=== PATIENT | male | born 1970 | race Caucasian/White ===

== ENCOUNTER → 2016-03-22 | Outpatient (CLI) | payer BC ==
--- NOTE | 2016-03-22 16:02 | NM ---
EXAMINATION TYPE: NM parathyroid w/ SPECT DATE OF EXAM: 03/22/2016 3:37 PM COMPARISON: Correlation ultrasound 03/16/2016 HISTORY: 46-year-old male hypoparathyroidism, unspecified TECHNIQUE: Following administration of 27.2 mCi Tc99m Sestamibi. Anterior projection images of the neck and ches t were obtained 3 minutes and 3 hours post injection. SPECT images of the neck and chest were obtain ed and reconstructed in three axes. FINDINGS: Thyroid tracer washout: Delayed images demonstrate complete to near complete tracer washout from the thyroid. Parathyroid uptake: None. The 3 hour delayed images do not demonstrate any focal abnormal persistent uptake in the region of the parathyroid glands to suggest parathyroid adenoma. Other uptake: While normal uptake is noted in the salivary glands and the visualized myocardium, ther e is excessive bone marrow uptake seen throughout including the calvarium, clavicles, humeri, sternum , and ribs. Initially, physiologic tracer uptake was noted in the thyroid gland. IMPRESSION: 1. No scintigraphic evidence for parathyroid adenoma. 2. There is bone marrow uptake on this parathyroid scan. This finding can be seen in the setting of e xtremely high PTH levels such as with end-stage renal disease.
== END | disposition home or self-care (01) ==
LOC: RADNMMAIN 11:08
PROVIDERS: ATTEND Family Medicine
DX: E20.9 Hypoparathyroidism, unspecified (principal); R94.6 Abnormal results of thyroid function studies
CPT/HCPCS: 78071; A9500

== ENCOUNTER 2016-04-23 12:04 | Day surgery (SDC) | payer BC ==
[~2016-04-23 12:04] MED LIST: ALPRAZolam 0.5 MG TAB PO ONE; SODIUM BICARB 4% 5 ML VIAL (0.48 MEQ/ML) MISCELLANE PRN
[2016-04-23 12:38] VITALS: BP 151/82; PULSE 96; RESP 18
== END 2016-04-23 13:30 | disposition other institution (70) ==
LOC: RADPROMAIN 12:04
PROVIDERS: ATTEND Otolaryngology
DX: E04.1 Nontoxic single thyroid nodule (principal); Z53.09 Procedure and treatment not carried out because of other contraindication

== ENCOUNTER 2016-04-23 12:51 | Inpatient (IN) | payer BC ==
[2016-04-23] MEDS ORDERED: ASPIRIN 81 MG CHEW PO STA (13:11)
[2016-04-23] MEDS ORDERED: NITROGLYCERIN OINT 1 INCH/GM PACKET TOPICAL STA (13:11)
--- NOTE | 2016-04-23 13:15 | ED ---
General Adult HPI - General Chief complaint: Chest Pain Stated complaint: Cough,SOB Time Seen by Provider: 04/23/16 13:00 Source: patient, RN notes reviewed Mode of arrival: wheelchair Limitations: no limitations, physical limitation - History of Present Illness Initial comments: Patient is a pleasant 46-year-old male presenting to the emergency department complaining of chest discomfort. Patient was supposed to have a biopsy done of his thyroid gland however notified and he has been having chest discomfort he was advised to come to the emergency department. Patient states he has a chronic cough for the past one year which was attributed to reflux disease. Patient has lost approximately 85 pounds over the past year. This has been with diet. Patient has had sharp discomfort left chest the past week or 2 intermittently. Patient has also had exertional dyspnea for the past several weeks. No leg pain or leg swelling. No fevers. - Related Data Home Medications Medication Instructions Recorded Confirmed Albuterol Inhaler [Ventolin Hfa 1 - 2 puff INHALATION RT-Q6H PRN 12/05/15 Inhaler] Famotidine 40 mg PO DAILY 04/23/16 04/23/16 Ibuprofen [Motrin] 800 mg PO Q8H PRN 04/23/16 04/23/16 Vardenafil HCl [Levitra] 20 mg PO DAILY PRN 04/23/16 04/23/16 Allergies Allergy/AdvReac Type Severity Reaction Status Date / Time No Known Allergies Allergy Verified 04/23/16 13:39 Review of Systems ROS Statement: Those systems with pertinent positive or pertinent negative responses have been documented in the HPI. ROS Other: All systems not noted in ROS Statement are negative. Constitutional: Denies: fever Eyes: Denies: eye pain ENT: Denies: ear pain Respiratory: Reports: cough, dyspnea Cardiovascular: Reports: chest pain Endocrine: Reports: fatigue Gastrointestinal: Denies: abdominal pain Genitourinary: Denies: dysuria Musculoskeletal: Denies: back pain Skin: Denies: rash Neurological: Denies: weakness Past Medical History Past Medical History: GERD/Reflux, Renal Disease Additional Past Medical History / Comment(s): stg 3 kidney disease[place] [id number],freq cough History of Any Multi-Drug Resistant Organisms: None Reported Past Surgical History: Orthopedic Surgery Additional Past Surgical History / Comment(s): orif lt ankle Past Anesthesia/Blood Transfusion Reactions: No Reported Reaction Additional Past Anesthesia/Blood Transfusion Reaction / Comment(s): no hx blood transfusion Past Psychological History: No Psychological Hx Reported Smoking Status: Never smoker Past Alcohol Use History: None Reported Past Drug Use History: None Reported - Past Family History Mother Family Medical History: Hypertension, Osteoarthritis (OA) Father Family Medical History: Diabetes Mellitus, Renal Disease Additional Family Medical History / Comment(s): stg 3 kidney disease General Exam Limitations: physical limitation General appearance: alert, in no apparent distress Head exam: Present: atraumatic Eye exam: Present: normal appearance, PERRL ENT exam: Present: normal oropharynx Neck exam: Present: normal inspection Respiratory exam: Present: normal lung sounds bilaterally. Absent: chest wall tenderness Cardiovascular Exam: Present: regular rate, normal rhythm GI/Abdominal exam: Present: soft, distended (Minimally distended). Absent: tenderness Extremities exam: Present: normal inspection. Absent: pedal edema, calf tenderness Neurological exam: Present: alert Psychiatric exam: Present: normal affect, normal mood Skin exam: Present: pallor. Absent: rash Course Vital Signs 04/23/16 04/23/16 04/23/16 12:57 13:20 13:30 Temperature 98.9 F Pulse Rate 101 H 100 Respiratory 20 15 15 Rate Blood Pressure 136/76 137/72 O2 Sat by Pulse 99 100 Oximetry 04/23/16 04/23/16 13:49 15:00 Temperature Pulse Rate 94 100 Respiratory 15 14 Rate Blood Pressure 125/66 133/73 O2 Sat by Pulse 98 99 Oximetry EKG Findings - EKG Comments: EKG Findings:: Normal sinus rhythm and 94. Normal intervals. Normal axis. Normal QRS. Normal ST-T. Medical Decision Making - Medical Decision Making Patient reexamined and resting comfortably in bed. Patient was updated on results and plan. Case was discussed in detail with Dr. Leslie, who will admit for Dr. Lindsey. Hematology will be consult for pancytopenia. Patient was provided one unit of blood secondary to symptomatic anemia. - Lab Data Result diagrams: 04/23/16 13:15 04/23/16 13:15 Lab Results 04/23/16 04/23/16 04/23/16 Range/Units 13:15 13:15 13:15 WBC 1.5 L* (3.8-10.6) k/uL RBC 2.19 L (4.30-5.90) m/uL Hgb 6.2 L* (13.0-17.5) gm/dL Hct 19.9 L* (39.0-53.0) % MCV 90.6 (80.0-100.0) fL MCH 28.3 (25.0-35.0) pg MCHC 31.3 (31.0-37.0) g/dL RDW 19.9 H (11.5-15.5) % Plt Count 73 L (150-450) k/uL Neutrophils % (Manual) 43.0 % Band Neutrophils % 6.0 % Lymphocytes % (Manual) 41.0 % Monocytes % (Manual) 9.0 % Metamyelocytes % 1.0 % Neutrophils # (Manual) 0.7 L (1.3-7.7) k/uL Lymphocytes # (Manual) 0.6 L (1.0-4.8) k/uL Monocytes # (Manual) 0.1 (0-1.0) k/uL Nucleated RBCs 2 H (0-0) /100 WBC Polychromasia Present Hypochromasia Marked Poikilocytosis Moderate Anisocytosis Slight Tear Drop Cells Present Ovalocytes Present PT (9.0-12.0) sec INR (<1.1) APTT (22.0-30.0) sec Sodium 139 (137-145) mmol/L Potassium 4.4 (3.5-5.1) mmol/L Chloride 102 (98-107) mmol/L Carbon Dioxide 25 (22-30) mmol/L Anion Gap 12 mmol/L BUN 22 H (9-20) mg/dL Creatinine 1.19 (0.66-1.25) mg/dL Est GFR (MDRD) Af Amer >60 (>60 ml/min/1.73 sqM) Est GFR (MDRD) Non-Af >60 (>60 ml/min/1.73 sqM) Glucose 84 (74-99) mg/dL Calcium 10.1 (8.4-10.2) mg/dL Magnesium 1.8 (1.6-2.3) mg/dL Total Bilirubin 1.2 (0.2-1.3) mg/dL AST 55 (17-59) U/L ALT 45 (21-72) U/L Alkaline Phosphatase 94 (38-126) U/L Total Creatine Kinase <20 L (55-170) U/L CK-MB (CK-2) 0.3 (0.0-2.4) ng/mL CK-MB (CK-2) Rel Index 0.0 Troponin I <0.012 (0.000-0.034) ng/mL NT-Pro-B Natriuret Pep pg/mL Total Protein 5.6 L (6.3-8.2) g/dL Albumin 3.3 L (3.5-5.0) g/dL Blood Type Blood Type Recheck Antibody Screen Spec Expiration Date 04/23/16 04/23/16 04/23/16 Range/Units 13:15 13:15 13:15 WBC (3.8-10.6) k/uL RBC (4.30-5.90) m/uL Hgb (13.0-17.5) gm/dL Hct (39.0-53.0) % MCV (80.0-100.0) fL MCH (25.0-35.0) pg MCHC (31.0-37.0) g/dL RDW (11.5-15.5) % Plt Count (150-450) k/uL Neutrophils % (Manual) % Band Neutrophils % % Lymphocytes % (Manual) % Monocytes % (Manual) % Metamyelocytes % % Neutrophils # (Manual) (1.3-7.7) k/uL Lymphocytes # (Manual) (1.0-4.8) k/uL Monocytes # (Manual) (0-1.0) k/uL Nucleated RBCs (0-0) /100 WBC Polychromasia Hypochromasia Poikilocytosis Anisocytosis Tear Drop Cells Ovalocytes PT 11.6 (9.0-12.0) sec INR 1.2 (<1.1) APTT 26.5 (22.0-30.0) sec Sodium (137-145) mmol/L Potassium (3.5-5.1) mmol/L Chloride (98-107) mmol/L Carbon Dioxide (22-30) mmol/L Anion Gap mmol/L BUN (9-20) mg/dL Creatinine (0.66-1.25) mg/dL Est GFR (MDRD) Af Amer (>60 ml/min/1.73 sqM) Est GFR (MDRD) Non-Af (>60 ml/min/1.73 sqM) Glucose (74-99) mg/dL Calcium (8.4-10.2) mg/dL Magnesium (1.6-2.3) mg/dL Total Bilirubin (0.2-1.3) mg/dL AST (17-59) U/L ALT (21-72) U/L Alkaline Phosphatase (38-126) U/L Total Creatine Kinase (55-170) U/L CK-MB (CK-2) (0.0-2.4) ng/mL CK-MB (CK-2) Rel Index Troponin I (0.000-0.034) ng/mL NT-Pro-B Natriuret Pep 602 pg/mL Total Protein (6.3-8.2) g/dL Albumin (3.5-5.0) g/dL Blood Type A Negative Blood Type Recheck CABO Indicated Antibody Screen NEGATIVE Spec Expiration Date 04/26/2016 - 2275 - Radiology Data Radiology results: image reviewed (Two-view chest x-ray shows no acute process.) Critical Care Time Critical Care Time: Yes Total Critical Care Time: 31 Disposition Clinical Impression: Pancytopenia, Symptomatic anemia Disposition: ADMITTED IP TO THIS HOSP
--- NOTE | 2016-04-23 13:36 | XR ---
EXAMINATION TYPE: XR chest 2V DATE OF EXAM: 04/23/2016 1:31 PM COMPARISON: NONE HISTORY: Cough for one year with left upper chest pain for one day. TECHNIQUE: Frontal and lateral views of the chest are obtained. FINDINGS: Elevated left hemidiaphragm is present. There is no focal air space opacity, pleural effusi on, or pneumothorax seen. The cardiac silhouette size is within normal limits. The osseous structu res are intact. IMPRESSION: No acute cardiopulmonary process.
[2016-04-23 13:49] LABS: Anisocytosis Slight; CH 28.5; CHCM 31.7; HDW 4.47; Hypochromasia Marked; Immature Gran Flag Slight; MCH 28.3 pg (25.0-35.0); MCHC 31.3 g/dL (31.0-37.0); MCV 90.6 fL (80.0-100.0); Mean Platelet Volume 8.8; Poikilocytosis Moderate; RBC 2.19 m/uL (4.30-5.90); RDW 19.9 % (11.5-15.5); WBC (Perox) 1.66
[2016-04-23 13:52] LABS: INR 1.2 (<1.1); Partial Thromboplastin Time 26.5 sec (22.0-30.0); Prothrombin Time 11.6 sec (9.0-12.0)
[2016-04-23 14:00] LABS: ALT 45 U/L (21-72); AST 55 U/L (17-59); Alkaline Phosphatase 94 U/L (38-126); Anion Gap 12 mmol/L; Blood Urea Nitrogen 22 mg/dL (9-20); Calcium 10.1 mg/dL (8.4-10.2); Carbon Dioxide 25 mmol/L (22-30); Chloride 102 mmol/L (98-107); Glucose 84 mg/dL (74-99); Magnesium 1.8 mg/dL (1.6-2.3); Non-African American GFR(MDRD) >60 (>60 ml/min/1.73 sqM); Potassium 4.4 mmol/L (3.5-5.1); Sodium 139 mmol/L (137-145); Total Bilirubin 1.2 mg/dL (0.2-1.3); Total Protein 5.6 g/dL (6.3-8.2)
[2016-04-23 14:01] LABS: WBC 1.5 k/uL (3.8-10.6)
[2016-04-23 14:02] LABS: HCT 19.9 % (39.0-53.0); HGB 6.2 gm/dL (13.0-17.5)
[2016-04-23 14:16] LABS: Add Differential Manual Differential
[2016-04-23 14:26] LABS: Nucleated Red Blood Cells 2 /100 WBC (0-0); Total Cells Counted 100
[2016-04-23 14:27] LABS: Ovalocytes Present; Tear Drop Cells Present
[2016-04-23 14:28] LABS: Creatine Kinase <20 U/L (55-170)
[2016-04-23 14:29] LABS: Polychromasia Present
[2016-04-23 14:39] LABS: Creatine Kinase MB 0.3 ng/mL (0.0-2.4); Troponin I <0.012 ng/mL (0.000-0.034)
[2016-04-23] MEDS ORDERED: NALOXONE 0.4 MG/ML 1 ML VIAL IV PRN (15:34)
[2016-04-23] MEDS: SODIUM CHLORIDE 0.9% 1,000 ML IV SCH (15:53)
[2016-04-23] MEDS ORDERED: RX INFO: IV CONTRAST WAS GIVEN 1 EACH MISC MISCELLANE PRN (17:35)
--- NOTE | 2016-04-23 19:11 | CT ---
EXAMINATION TYPE: CT angio chest DATE OF EXAM: 04/23/2016 6:26 PM COMPARISON: NONE HISTORY: Shortness of breath x [address] DLP: 649.00 mGycm Automated exposure control for dose reduction was used. CONTRAST: CTA scan of the thorax is performed with IV Contrast, patient injected with 100 mL of Omnipaque 350, pulmonary embolism protocol. . FINDINGS: There are 3-D post processed images. The lungs are clear of infiltrate. There is no evidence of a pul monary mass. There is no pleural effusion. Heart and mediastinum are normal. There is no pericardial effusion. I see no filling defects in the pulmonary arteries. There is suboptimal pulmonary artery co ntrast opacification. There is no evidence of aortic aneurysm or dissection. There is a 1.7 cm right paratracheal lymph node. There are no hilar masses. The bony thorax is intact. IMPRESSION: NO EVIDENCE OF PULMONARY EMBOLISM. SINGLE DOMINANT RIGHT PARATRACHEAL LYMPH NODE OF UNCERTAIN SIGNIFI CANCE. NORMAL HEART.
[2016-04-23 19:53] LABS: Creatine Kinase <20 U/L (55-170)
[2016-04-23 20:05] LABS: Creatine Kinase MB 0.3 ng/mL (0.0-2.4); Troponin I <0.012 ng/mL (0.000-0.034)
[2016-04-23] MEDS: HYDROcodone/APAP 5-325MG 1 EACH TAB PO PRN (21:51)
[2016-04-24 01:49] LABS: Creatine Kinase <20 U/L (55-170)
[2016-04-24 02:02] LABS: Creatine Kinase MB <0.2 ng/mL (0.0-2.4); Troponin I <0.012 ng/mL (0.000-0.034)
[2016-04-24] MEDS: HYDROcodone/APAP 5-325MG 1 EACH TAB PO PRN ×3 (04:47→20:54)
[2016-04-24 07:14] LABS: Anisocytosis Slight; CHCM 31.9; HDW 4.36; Hypochromasia Marked; MCH 28.3 pg (25.0-35.0); MCHC 30.9 g/dL (31.0-37.0); MCV 91.5 fL (80.0-100.0); Mean Platelet Volume 8.3; Poikilocytosis Moderate; RBC 2.14 m/uL (4.30-5.90); RDW 19.6 % (11.5-15.5); Reticulocyte % 5.4 % (0.5-2.0); WBC (Perox) 1.08
[2016-04-24 07:24] LABS: WBC 1.1 k/uL (3.8-10.6)
[2016-04-24 07:24] LABS: ALT 42 U/L (21-72); AST 50 U/L (17-59); Alkaline Phosphatase 86 U/L (38-126); Amylase <30 U/L (30-110); Anion Gap 12 mmol/L; Blood Urea Nitrogen 20 mg/dL (9-20); Calcium 9.5 mg/dL (8.4-10.2); Carbon Dioxide 24 mmol/L (22-30); Chloride 102 mmol/L (98-107); Glucose 88 mg/dL (74-99); LDH 549 U/L (313-618); Non-African American GFR(MDRD) >60 (>60 ml/min/1.73 sqM); Potassium 4.2 mmol/L (3.5-5.1); Sodium 138 mmol/L (137-145); Total Bilirubin 1.4 mg/dL (0.2-1.3)
[2016-04-24 07:25] LABS: HCT 19.6 % (39.0-53.0); HGB 6.1 gm/dL (13.0-17.5)
[2016-04-24] MEDS ORDERED: PANTOPRAZOLE 40 MG/10 ML VIAL IV SCH (09:00)
[2016-04-24 10:48] LABS: Add Differential Manual Differential
[2016-04-24 10:55] LABS: Manual Review Performed; Nucleated Red Blood Cells 3 /100 WBC (0-0); Polychromasia Present; Total Cells Counted 100
--- NOTE | 2016-04-24 11:14 | CONS ---
DATE OF CONSULTATION: Manuelito is a 46-year-old gentleman who was in the hospital, actually for a thyroid biopsy and complained of chest pain for which he was sent to the emergency room from where he was admitted. He complains of vague precordial chest pain that is unrelated to exertion and unassociated with diaphoresis. He has been becoming short of breath and has generally been fatigued and tired for a while now. His symptoms are not new. He was severely anemic with a hemoglobin of 6.2 ,white cell count was 1.5, platelet count is 73 suggestive of pancytopenia. He has had 3 sets of troponins that are all within normal limits. At the time of my evaluation, he appears comfortable at rest and is free of symptoms. I believe his cardiac symptoms are related to anemia. It is unclear if patient had any work-up done as outpatient or not and if so, what the hemoglobin was. But from what I see at the moment, his primary problem seems to be the pancytopenia that he has and his cardiac symptoms are secondary to that. Past medical history is negative for hypertension, diabetes, dyslipidemia. Medications at home included Levitra, Motrin, famotidine and Ventolin. ALLERGIES: There are no known drug allergies. Family history is significant for premature coronary artery disease. Social history is negative for current smoking, EtOH abuse, or drug abuse. REVIEW OF SYSTEMS: HEENT is unremarkable. CARDIAC: As described above. RESPIRATORY: Significant for shortness of breath. GI: Negative. GENITOURINARY: Negative. ALLERGY/IMMUNOLOGY: Negative. SKIN: Negative. MUSCULOSKELETAL: Negative. ENDOCRINE: Negative. DERMATOLOGICAL: Negative. CONSTITUTIONAL: Significant for fatigued and tired. NEUROLOGICAL: Significant for weakness. On exam, he is comfortable at rest. Heart rate is 90 beats per minute, blood pressure is 120/58, respiratory rate is 18, O2 sat is 97%. There is no jugular venous distention. Carotid upstroke is normal. There is no bruit. Chest exam reveals good air entry bilaterally. Heart exam reveals first and second heart sounds. No gallop. Abdomen is soft, nontender. Exam of extremities did not reveal edema. Peripheral pulses are felt. A CT scan of the chest is negative for pulmonary embolism. Labs show a hemoglobin of 6.1, platelet count is 46, potassium is 4.2. Creatinine is 1.2. Troponin are negative. EKG is within normal limits. ASSESSMENT: 1. Chest pain, probably secondary to supply-demand mismatch related to severe anemia. 2. Severe symptomatic anemia in a patient with pancytopenia. 3. History of thyroid nodule. PLAN: I am going to obtain a 2-D echo on him to document his LV function. He needs blood transfusion to keep the hemoglobin around 8. Needs work-up for pancytopenia. Please consult Hematology. Whenever his anemia resolves, I will consider doing a stress test on him as outpatient.
[2016-04-24 11:34] VITALS: BMI 34.2
--- NOTE | 2016-04-24 11:49 | ECHOF ---
Referral Reason:lv function MEASUREMENTS -------- HEIGHT: 193.0 cm WEIGHT: 127.5 kg BP: 128/58 RVIDd: 3.2 cm (< 3.3) IVSd: 0.8 cm (0.6 - 1.1) LVIDd: 4.5 cm (3.9 - 5.3) LVPWd: 1.0 cm (0.6 - 1.1) IVSs: 2.0 cm LVIDs: 3.0 cm LVPWs: 1.3 cm LA Diam: 3.5 cm (2.7 - 3.8) LAESV Index (A-L): 19.97 ml/m Ao Diam: 3.4 cm (2.0 - 3.7) AV Cusp: 2.5 cm (1.5 - 2.6) LA Diam: 3.0 cm (2.7 - 3.8) MV EXCURSION: 15.271 mm (> 18.000) MV EF SLOPE: 93 mm/s (70 - 150) EPSS: 0.4 cm MV E Dillon: 1.03 m/s MV DecT: 172 ms MV A Dillon: 0.83 m/s MV E/A Ratio: 1.25 FINDINGS -------- Sinus rhythm. This was a technically good study. Left ventricular wall thickness is normal. Overall left ventricular systolic function is normal with, an EF between 55 - 60 %. The right ventricle is normal in size. Normal LA size by volume 22+/-6 ml/m2. The right atrium is normal in size. Aortic valve is trileaflet and is mildly thickened. The mitral valve leaflets are mildly thickened. Mild mitral annular calcification present. Trace tricuspid regurgitation present. Pulmonic valve appears structurally normal. The aortic root size is normal. The inferior vena cava is mildly dilated. There is no pericardial effusion. CONCLUSIONS -------- 1. Sinus rhythm. 2. Mild mitral annular calcification present. 3. Trace tricuspid regurgitation present. 4. Pulmonic valve appears structurally normal. 5. The aortic root size is normal. 6. The inferior vena cava is mildly dilated. 7. There is no pericardial effusion. 8. This was a technically good study. 9. Left ventricular wall thickness is normal. 10. Overall left ventricular systolic function is normal with, an EF between 55 - 60 %. 11. The right ventricle is normal in size. 12. Normal LA size by volume 22+/-6 ml/m2. 13. The right atrium is normal in size. 14. Aortic valve is trileaflet and is mildly thickened. 15. The mitral valve leaflets are mildly thickened. CLOAK ROOM ATTENDANT: Rita Hodges RDCS
[2016-04-24] MEDS: SODIUM CHLORIDE 0.9% 1,000 ML IV SCH (14:56)
--- NOTE | 2016-04-24 16:44 | P.HPIM ---
History of Present Illness H&P Date: 04/24/16 Chief Complaint: Fatigue This is a 46-year-old gentleman that is admitted to the hospital with progressive worsening of fatigue and some atypical chest pressure prior to admission. Patient apparently had a thyroid nodule that he is undergone biopsy for at which time he complained of some chest pressure which patient was sent to the ER for ongoing care. Patient underwent a CT angiogram of the chest to rule out a pulmonary embolism which was negative. Patient thereafter had serial cardiac enzymes which were also negative. Incidentally patient was noted to have pancytopenia including a hemoglobin level around 6 g per DL. Patient was given blood with the diagnosis symptomatic anemia. Patient apparently has had severe progressive worsening of dyspnea. However prior to blood and fusion patient was not tested for any deficiencies. Patient denies having any family history of cancers. No recent travel history is reported. Review of Systems All systems: negative (Noted in HPI) Past Medical History Past Medical History: GERD/Reflux, Renal Disease Additional Past Medical History / Comment(s): stg 3 kidney disease,[place] [address],freq cough History of Any Multi-Drug Resistant Organisms: None Reported Past Surgical History: Orthopedic Surgery Additional Past Surgical History / Comment(s): Broke left ankle in hockey game Past Anesthesia/Blood Transfusion Reactions: No Reported Reaction Additional Past Anesthesia/Blood Transfusion Reaction / Comment(s): no hx blood transfusion Past Psychological History: No Psychological Hx Reported Smoking Status: Never smoker Past Alcohol Use History: None Reported Past Drug Use History: None Reported - Past Family History Mother Family Medical History: Hypertension, Osteoarthritis (OA) Father Family Medical History: Diabetes Mellitus, Renal Disease Additional Family Medical History / Comment(s): stg 3 kidney disease Medications and Allergies Home Medications Medication Instructions Recorded Confirmed Type Albuterol Inhaler [Ventolin Hfa 1 - 2 puff INHALATION RT-Q6H PRN 12/05/15 History Inhaler] Famotidine 40 mg PO DAILY 04/23/16 04/23/16 History Ibuprofen [Motrin] 800 mg PO Q8H PRN 04/23/16 04/23/16 History Vardenafil HCl [Levitra] 20 mg PO DAILY PRN 04/23/16 04/23/16 History Allergies Allergy/AdvReac Type Severity Reaction Status Date / Time No Known Allergies Allergy Verified 04/23/16 13:39 Physical Exam Vitals: Vital Signs Temp Pulse Pulse Resp BP BP Pulse Ox 04/24/16 16:00 91 16 136/90 98 04/24/16 11:33 90 16 04/24/16 11:32 96.3 F L 90 16 115/56 98 04/24/16 07:58 93 16 04/24/16 07:57 98.8 F 93 16 128/58 97 04/24/16 04:00 97.1 F L 96 18 125/69 97 04/24/16 00:00 98.6 F 103 H 104 H 17 134/64 141/78 98 04/23/16 21:52 97.9 F 104 H 18 142/88 96 04/23/16 21:18 98.9 F 103 H 17 141/78 98 04/23/16 21:12 99.8 F H 105 H 18 138/72 97 04/23/16 20:00 99.8 F H 105 H 18 138/72 97 04/23/16 16:45 102 H 18 04/23/16 16:44 97.0 F L 102 H 18 147/94 99 Intake and Output 04/24/16 04/24/16 04/24/16 06:59 14:59 22:59 Intake Total 720 960 240 Output Total 250 Balance 470 960 240 Intake: IV 100 20 240 Sodium Chloride 0.9% 1, 100 20 240 000 ml @ 20 mls/hr IV . Q24H [facility] Rx#:[id number] Oral 940 Blood Product 620 Rc Pheresis 2 As3 Unit 310 [id number] Output: Urine 250 Other: Voiding Method Toilet Toilet Toilet # Voids 1 Weight 127.8 kg 127.8 kg Patient Weight 04/25/16 06:59 Weight 127.8 kg Physical exam Gen. appearance oriented 3 in no distress Neck is supple no JVD Lungs good air entry clear to auscultation no rhonchi or wheezing Heart S1-S2 heard regular rate and rhythm no murmurs appreciated Abdomen is soft nontender no organomegaly bowel sounds are intact Neurologically cranial nerves II-12 grossly intact no focal motor or sensory deficits noted Skin no abnormalities appreciated Results CBC & Chem 7: 04/24/16 06:13 04/24/16 06:26 Labs: Abnormal Lab Results - Last 24 Hours (Table) 02/09/0104/24/16 04/24/16 Range/Units 19:02 01:12 06:13 WBC 1.1 L* (3.8-10.6) k/uL RBC 2.14 L (4.30-5.90) m/uL Hgb 6.1 L* (13.0-17.5) gm/dL Hct 19.6 L* (39.0-53.0) % MCHC 30.9 L (31.0-37.0) g/dL RDW 19.6 H (11.5-15.5) % Plt Count 59 L (150-450) k/uL Neutrophils # (Manual) 0.4 L (1.3-7.7) k/uL Lymphocytes # (Manual) 0.5 L (1.0-4.8) k/uL Nucleated RBCs 3 H (0-0) /100 WBC Retic Count 5.4 H (0.5-2.0) % Total Bilirubin (0.2-1.3) mg/dL Total Creatine Kinase <20 L <20 L (55-170) U/L Total Protein (6.3-8.2) g/dL Albumin (3.5-5.0) g/dL Amylase (30-110) U/L 04/24/16 Range/Units 06:26 WBC (3.8-10.6) k/uL RBC (4.30-5.90) m/uL Hgb (13.0-17.5) gm/dL Hct (39.0-53.0) % MCHC (31.0-37.0) g/dL RDW (11.5-15.5) % Plt Count (150-450) k/uL Neutrophils # (Manual) (1.3-7.7) k/uL Lymphocytes # (Manual) (1.0-4.8) k/uL Nucleated RBCs (0-0) /100 WBC Retic Count (0.5-2.0) % Total Bilirubin 1.4 H (0.2-1.3) mg/dL Total Creatine Kinase (55-170) U/L Total Protein 5.0 L (6.3-8.2) g/dL Albumin 3.0 L (3.5-5.0) g/dL Amylase <30 L (30-110) U/L Thrombosis Risk Factor Assmnt - Choose All That Apply Each Factor Represents 1 point: Age 41-60 years, Obesity (BMI >25) Other Risk Factors: No Thrombosis Risk Factor Assessment Total Risk Factor Score: 2 Thrombosis Risk Factor Assessment Level: Low Risk Assessment and Plan Plan: #1 symptomatic anemia #2 pancytopenia suspicion of bone marrow failure #3 atypical chest pain #4 thyroid nodule Plan Patient was seen by hematology. A plan for bone marrow biopsy is made. We'll repeat workup in the a.m. Patient's reticulocyte count appears to be elevated however this was done after patient received a unit of blood. Patient is encouraged to ambulate. Continue ongoing care. Hold medications including Pepcid.
--- NOTE | 2016-04-24 18:10 | P.CONS ---
History of Present Illness - Reason for Consult Consult date: 04/24/16 pancytopenia Requesting physician: Brennan Boyce - Chief Complaint symptomatic anemia - History of Present Illness Mr. Whitfield is a very pleasant 46 year old male pt of PCP Dr. Artis. He was scheduled for thyroid biopsy but due to SOB and chest pain pt was sent to ER for evaluation, he was found to be profoundly anemic with pancytopenia. Pt states he had a bone marrow sometime between 2006 and 2010 at [facility] for low platelet counts, he states he never received a formal diagnosis and no treatment or other work up. Pt denies fevers, night sweats, infections, bleeding, no Hx of blood transfusion. He states that he was told in the last year that his spleen is enlarged, he has lost 85 lbs over the last year but he was dieting, he has had hypercalcemia before in the 11-12 range, that is why he was having thyroid biopsy. He has had a chronic dry cough, very tired all the time, wears out easily. No current nausea, anorexia, he has some swelling in his legs. Review of Systems All systems: negative Constitutional: Reports as per HPI Past Medical History Past Medical History: Blood Disorder, GERD/Reflux, Renal Disease Additional Past Medical History / Comment(s): stg 3 kidney disease,[place] [id number],freq cough History of Any Multi-Drug Resistant Organisms: None Reported Past Surgical History: Orthopedic Surgery Additional Past Surgical History / Comment(s): Broke left ankle in hockey game Past Anesthesia/Blood Transfusion Reactions: No Reported Reaction Additional Past Anesthesia/Blood Transfusion Reaction / Comm: no hx blood transfusion Past Psychological History: No Psychological Hx Reported Smoking Status: Never smoker Past Alcohol Use History: None Reported Past Drug Use History: None Reported - Past Family History Mother Family Medical History: Hypertension, Osteoarthritis (OA) Father Family Medical History: Diabetes Mellitus, Renal Disease Additional Family Medical History / Comment(s): stg 3 kidney disease Medications and Allergies Home Medications Medication Instructions Recorded Confirmed Type Albuterol Inhaler [Ventolin Hfa 1 - 2 puff INHALATION RT-Q6H PRN 12/05/15 History Inhaler] Famotidine 40 mg PO DAILY 04/23/16 04/23/16 History Ibuprofen [Motrin] 800 mg PO Q8H PRN 04/23/16 04/23/16 History Vardenafil HCl [Levitra] 20 mg PO DAILY PRN 04/23/16 04/23/16 History Allergies Allergy/AdvReac Type Severity Reaction Status Date / Time No Known Allergies Allergy Verified 04/23/16 13:39 Physical Exam Vitals: Vital Signs Temp Pulse Pulse Resp BP BP Pulse Ox 04/24/16 16:00 91 16 136/90 98 04/24/16 11:33 90 16 04/24/16 11:32 96.3 F L 90 16 115/56 98 04/24/16 07:58 93 16 04/24/16 07:57 98.8 F 93 16 128/58 97 04/24/16 04:00 97.1 F L 96 18 125/69 97 04/24/16 00:00 98.6 F 103 H 104 H 17 134/64 141/78 98 04/23/16 21:52 97.9 F 104 H 18 142/88 96 04/23/16 21:18 98.9 F 103 H 17 141/78 98 04/23/16 21:12 99.8 F H 105 H 18 138/72 97 04/23/16 20:00 99.8 F H 105 H 18 138/72 97 Intake and Output 04/24/16 04/24/16 04/24/16 06:59 14:59 22:59 Intake Total 720 960 240 Output Total 250 Balance 470 960 240 Intake: IV 100 20 240 Sodium Chloride 0.9% 1, 100 20 240 000 ml @ 20 mls/hr IV . Q24H [facility] Rx#:[id number] Oral 940 Blood Product 620 Rc Pheresis 2 As3 Unit 310 [id number] Output: Urine 250 Other: Voiding Method Toilet Toilet Toilet # Voids 1 Weight 127.8 kg 127.8 kg Patient Weight 04/25/16 06:59 Weight 127.8 kg - Constitutional General appearance: cooperative, no acute distress, obese - Neck Neck: no lymphadenopathy - Respiratory Respiratory: bilateral: CTA - Cardiovascular Rhythm: regular Heart sounds: normal: S1, S2 foot Peripheral Edema: bilateral: 1+ - Gastrointestinal General gastrointestinal: no absent bowel sounds, no decreased bowel sounds, no distended, no hepatomegaly, no hyperactive bowel sounds, normal bowel sounds, no organomegaly, no rigid, no scaphoid, soft, splenomegaly, no tenderness, no umbilical hernia, no ventral hernia - Integumentary Integumentary: pale - Neurologic Neurologic: CNII-XII intact - Musculoskeletal Musculoskeletal: generalized weakness - Psychiatric Psychiatric: A&O x's 3, appropriate affect, intact judgment & insight Results CBC & Chem 7: 04/24/16 06:13 04/24/16 06:26 Labs: Abnormal Lab Results - Last 24 Hours (Table) 04/23/16 04/24/16 04/24/16 Range/Units 19:02 01:12 06:13 WBC 1.1 L* (3.8-10.6) k/uL RBC 2.14 L (4.30-5.90) m/uL Hgb 6.1 L* (13.0-17.5) gm/dL Hct 19.6 L* (39.0-53.0) % MCHC 30.9 L (31.0-37.0) g/dL RDW 19.6 H (11.5-15.5) % Plt Count 59 L (150-450) k/uL Neutrophils # (Manual) 0.4 L (1.3-7.7) k/uL Lymphocytes # (Manual) 0.5 L (1.0-4.8) k/uL Nucleated RBCs 3 H (0-0) /100 WBC Retic Count 5.4 H (0.5-2.0) % Total Bilirubin (0.2-1.3) mg/dL Total Creatine Kinase <20 L <20 L (55-170) U/L Total Protein (6.3-8.2) g/dL Albumin (3.5-5.0) g/dL Amylase (30-110) U/L 04/24/16 Range/Units 06:26 WBC (3.8-10.6) k/uL RBC (4.30-5.90) m/uL Hgb (13.0-17.5) gm/dL Hct (39.0-53.0) % MCHC (31.0-37.0) g/dL RDW (11.5-15.5) % Plt Count (150-450) k/uL Neutrophils # (Manual) (1.3-7.7) k/uL Lymphocytes # (Manual) (1.0-4.8) k/uL Nucleated RBCs (0-0) /100 WBC Retic Count (0.5-2.0) % Total Bilirubin 1.4 H (0.2-1.3) mg/dL Total Creatine Kinase (55-170) U/L Total Protein 5.0 L (6.3-8.2) g/dL Albumin 3.0 L (3.5-5.0) g/dL Amylase <30 L (30-110) U/L Chest x-ray: report reviewed CT scan - chest: report reviewed Assessment and Plan (1) Pancytopenia Narrative/Plan: Pt states a history of thrombocytopenia, bone marrow at [facility] sometime between [id number]. Will look for those reports. Pancytopenia lab work up ordered. Bone marrow sched for Thur. Procedure was discussed with pt, purpose and risks of procedure, pt has had one in the past, he agreed to proceed. Transfuse with 1 unit irradiated PRBCs, all future blood products to be irradiated. Status: Acute
[2016-04-24 18:35] LABS: Iron 53 ug/dL (49-181); LDH 628 U/L (313-618)
[2016-04-24 18:38] LABS: Reticulocyte % 5.4 % (0.5-2.0)
[2016-04-24 18:44] LABS: Rheumatoid Factor, Qnt <9 IU/mL (<12); Total Iron Binding Capacity 311 ug/dL (261-462)
[2016-04-24 19:24] LABS: Vitamin B12 394 pg/mL (239-931)
[2016-04-25 01:20] LABS: ANA w/Reflex to Titer NEGATIVE (NEGATIVE)
[2016-04-25 07:14] LABS: Anisocytosis Slight; Basophils % (A) 1 %; CH 29.4; CHCM 32.3; Eosinophils % (A) 1 %; HCT 23.3 % (39.0-53.0); HDW 4.45; HGB 7.3 gm/dL (13.0-17.5); Hypochromasia Moderate; Luc # (Auto) 0.04; Luc % (Auto) 4; Lymphocytes # (A) 0.4 k/uL (1.0-4.8); Lymphocytes % (A) 35 %; MCH 28.7 pg (25.0-35.0); MCHC 31.3 g/dL (31.0-37.0); MCV 91.7 fL (80.0-100.0); Mean Platelet Volume 9.2; Monocytes # (A) 0.1 k/uL (0-1.0); Monocytes % (A) 11 %; Neutrophils # (A) 0.6 k/uL (1.3-7.7); Neutrophils % (A) 50 %; Poikilocytosis Moderate; RBC 2.54 m/uL (4.30-5.90); RDW 19.2 % (11.5-15.5); WBC (Perox) 1.13
[2016-04-25 08:13] LABS: Manual Review Performed
[2016-04-25 08:14] LABS: Ovalocytes Present; Polychromasia Present
[2016-04-25] MEDS ORDERED: ONDANSETRON 4 MG/2 ML VIAL IVP PRN (09:32)
[2016-04-25] MEDS: HYDROcodone/APAP 5-325MG 1 EACH TAB PO PRN ×3 (10:49→22:10)
[2016-04-25] MEDS: SODIUM CHLORIDE 0.9% 1,000 ML IV SCH (10:50)
--- NOTE | 2016-04-25 12:20 | PN ---
Manuelito is a 46-year-old gentleman who is admitted to hospital with shortness of breath was found to be profoundly anemic and also had pancytopenia. He had an echocardiogram that showed normal LV systolic function without significant valvular heart disease. Had a CT chest that was negative for pulmonary embolism. Patient is currently being worked up for his pancytopenia and is in the process of getting bone marrow. This morning, patient is comfortable at rest. Vital signs are stable. There is no jugular venous distention. Chest exam reveals good air entry bilaterally. Heart exam reveals first and second heart sounds. No gallop. Exam of the extremities did not reveal edema. Peripheral pulses are felt. ASSESSMENT: Shortness of breath secondary to pancytopenia and severe symptomatic anemia. PLAN: From cardiac standpoint, he does not require any further work-up at this time. On discharge once the pancytopenia issues are addressed, if necessary, we may do a stress test on him down the road. Thank you for allowing me to participate in the care of this pleasant gentleman. I will see him on an as-needed basis. Patient may be transferred to [facility] floor.
--- NOTE | 2016-04-25 17:07 | P.PN ---
Subjective This is a 46-year-old gentleman that is admitted to the hospital with progressive worsening of fatigue and some atypical chest pressure prior to admission. Patient apparently had a thyroid nodule that he is undergone biopsy for at which time he complained of some chest pressure which patient was sent to the ER for ongoing care. Patient underwent a CT angiogram of the chest to rule out a pulmonary embolism which was negative. Patient thereafter had serial cardiac enzymes which were also negative. Incidentally patient was noted to have pancytopenia including a hemoglobin level around 6 g per DL. Patient was given blood with the diagnosis symptomatic anemia. Patient apparently has had severe progressive worsening of dyspnea. However prior to blood and fusion patient was not tested for any deficiencies. Patient denies having any family history of cancers. No recent travel history is reported. 04/25/2016 Patient was asymptomatic. Had multiple questions about his condition. The bone marrow biopsy was deferred until tomorrow. Denies having any fevers, chills, nausea, vomiting, urinary urgency or frequency , diarrhea. Objective - Vital Signs Vital signs: Vital Signs Temp 97.4 F L 04/25/16 15:36 Pulse 92 04/25/16 15:36 Resp 16 04/25/16 15:36 BP 146/97 04/25/16 15:36 Pulse Ox 98 04/25/16 15:36 Intake & Output 04/24/16 04/25/16 04/25/16 18:59 06:59 18:59 Intake Total 1380 410 460 Output Total 200 Balance 1380 410 260 Weight 127.8 kg 126.8 kg Intake: IV 260 100 160 Sodium Chloride 0.9% 1, 260 100 160 000 ml @ 20 mls/hr IV . Q24H [facility] Rx#:[id number] Oral 1120 300 Blood Product 0 310 Rc Irr As1 Unit 0 310 [id number] Output: Urine 200 Other: Voiding Method Toilet Toilet Toilet # Voids 1 - Exam Physical exam Gen. appearance oriented 3 in no distress Neck is supple no JVD Lungs good air entry clear to auscultation no rhonchi or wheezing Heart S1-S2 heard regular rate and rhythm no murmurs appreciated Abdomen is soft nontender no organomegaly bowel sounds are intact Neurologically cranial nerves II-12 grossly intact no focal motor or sensory deficits noted Skin no abnormalities appreciated - Labs CBC & Chem 7: 04/25/16 06:26 04/24/16 06:26 Labs: Abnormal Lab Results - Last 24 Hours (Table) 04/24/16 04/24/16 04/25/16 Range/Units 17:58 17:58 06:26 WBC 1.2 L* (3.8-10.6) k/uL RBC 2.54 L (4.30-5.90) m/uL Hgb 7.3 L (13.0-17.5) gm/dL Hct 23.3 L (39.0-53.0) % RDW 19.2 H (11.5-15.5) % Plt Count 57 L (150-450) k/uL Neutrophils # 0.6 L (1.3-7.7) k/uL Lymphocytes # 0.4 L (1.0-4.8) k/uL Retic Count 5.4 H (0.5-2.0) % % Saturation 17.0 L (20-50) % Ferritin 1060 H (18-464) ng/mL Lactate Dehydrogenase 628 H (313-618) U/L Assessment and Plan Plan: #1 symptomatic anemia #2 pancytopenia suspicion of bone marrow failure #3 atypical chest pain #4 thyroid nodule Plan We'll have a bone marrow biopsy tomorrow. If repeat hemoglobin is less than 7 patient will need another PRBC transfusion. Thereafter patient may be discharged home to follow up with oncology in regards to bone marrow biopsy results. 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
--- NOTE | 2016-04-25 20:26 | P.PN ---
Subjective Principal diagnosis: Pancytopenia The pt feels somewhat stronger post transfusion. No obvious bleeding noted. No f /c/n/v/LAD Objective - Vital Signs Vital signs: Vital Signs Temp 97.4 F L 04/25/16 19:58 Pulse 89 04/25/16 19:58 Resp 18 04/25/16 19:58 BP 133/82 04/25/16 19:58 Pulse Ox 98 04/25/16 19:58 Intake & Output 04/25/16 04/25/16 04/26/16 06:59 18:59 06:59 Intake Total 410 460 Output Total 200 Balance 410 260 Weight 126.8 kg Intake: IV 100 160 Sodium Chloride 0.9% 1, 100 160 000 ml @ 20 mls/hr IV . Q24H [facility] Rx#:[id number] Oral 300 Blood Product 310 Rc Irr As1 Unit 310 [id number] Output: Urine 200 Other: Voiding Method Toilet Toilet Urinal # Voids 1 - Constitutional General appearance: Present: no acute distress - EENT Eyes: Present: EOMI, PERRLA ENT: Present: hearing grossly normal, normal oropharynx - Respiratory Respiratory: bilateral: CTA - Cardiovascular Rhythm: regular Heart sounds: normal: S1, S2 - Gastrointestinal General gastrointestinal: Present: normal bowel sounds, soft - Integumentary Integumentary: Present: normal - Neurologic Neurologic: Present: CNII-XII intact - Musculoskeletal Musculoskeletal: Present: generalized weakness - Psychiatric Psychiatric: Present: A&O x's 3 - Labs CBC & Chem 7: 04/25/16 06:26 04/24/16 06:26 Labs: Abnormal Lab Results - Last 24 Hours (Table) 04/25/16 Range/Units 06:26 WBC 1.2 L* (3.8-10.6) k/uL RBC 2.54 L (4.30-5.90) m/uL Hgb 7.3 L (13.0-17.5) gm/dL Hct 23.3 L (39.0-53.0) % RDW 19.2 H (11.5-15.5) % Plt Count 57 L (150-450) k/uL Neutrophils # 0.6 L (1.3-7.7) k/uL Lymphocytes # 0.4 L (1.0-4.8) k/uL Assessment and Plan (1) Pancytopenia Narrative/Plan: The pt is improved with transfusion symptomatically. His Hgb is > 7 today. Thus additional transfusion is not needed. Plt counts are stable. Labs so far indicate no evidence of a deficiency, supporting a primary bone marrow etiology. He is scheduled to have the bone marrow tomorrow. Continue to monitor counts, with supportive transfusions as needed. The procedure was discussed with him in detail. Status: Acute
[2016-04-25] MEDS ORDERED: ACETAMINOPHEN TAB 325 MG TAB PO PRN (22:58)
[2016-04-26] MEDS ORDERED: PROPOFOL 10 MG/ML 20 ML VIAL IV ONE (07:10)
[2016-04-26] MEDS ORDERED: fentaNYL (PF) 50 MCG/ML 2 ML AMP ONE (07:10)
[2016-04-26] MEDS ORDERED: MIDAZOLAM 2 MG/2 ML VIAL ONE (07:10)
[2016-04-26] MEDS ORDERED: LIDOCAINE 1% INJ 10MG/ML (20 ML MDV) ONE (07:10)
[2016-04-26 07:14] LABS: Anisocytosis Slight; Aty Lym Flag Moderate; CH 29.1; CHCM 31.9; HCT 22.3 % (39.0-53.0); HDW 4.37; HGB 7.2 gm/dL (13.0-17.5); Hypochromasia Moderate; Immature Gran Flag Moderate; MCH 29.4 pg (25.0-35.0); MCHC 32.1 g/dL (31.0-37.0); MCV 91.7 fL (80.0-100.0); Mean Platelet Volume 8.8; Poikilocytosis Moderate; RBC 2.44 m/uL (4.30-5.90); RDW 18.8 % (11.5-15.5); WBC (Perox) 1.18
[2016-04-26 07:20] LABS: WBC 1.2 k/uL (3.8-10.6)
[2016-04-26 07:29] LABS: ALT 53 U/L (21-72); AST 60 U/L (17-59); Alkaline Phosphatase 107 U/L (38-126); Anion Gap 8 mmol/L; Blood Urea Nitrogen 24 mg/dL (9-20); Calcium 9.8 mg/dL (8.4-10.2); Carbon Dioxide 28 mmol/L (22-30); Chloride 102 mmol/L (98-107); Glucose 85 mg/dL (74-99); Non-African American GFR(MDRD) >60 (>60 ml/min/1.73 sqM); Potassium 4.2 mmol/L (3.5-5.1); Sodium 138 mmol/L (137-145); Total Bilirubin 1.4 mg/dL (0.2-1.3); Total Protein 5.3 g/dL (6.3-8.2)
[2016-04-26] MEDS ORDERED: LACTATED RINGERS 1,000 ML IV ONE (07:40)
[2016-04-26 08:18] LABS: Add Differential Manual Differential
[2016-04-26 08:22] LABS: Manual Review Performed; Nucleated Red Blood Cells 1 /100 WBC (0-0); Total Cells Counted 100
[2016-04-26 08:23] LABS: Polychromasia Present; Tear Drop Cells Present
--- NOTE | 2016-04-26 09:27 | PCN ---
DATE OF PROCEDURE: 04/26/2016 TYPE OF PROCEDURE: Bone marrow aspiration and biopsy. INDICATIONS FOR PROCEDURE: New onset pancytopenia. TYPE OF ANESTHESIA: Local with IV sedation. PROCEDURE NOTE: The procedure was explained in detail to the patient on the floor. Informed consent was obtained. He was then brought to the outpatient endoscopy suite. He was placed in the left lateral decubitus position. The area over both posterior iliac crests was cleaned and prepped with chlorhexidine and sterile draping. IV sedation was then initiated. Local anesthesia was administered with lidocaine to the area of the right posterior iliac crest. A Jamshidi needle was then inserted. On the first pass, good aspirate sample could not be obtained. Therefore 2 additional passes were made with better aspirate samples obtained. Two biopsy samples were also obtained on each of these attempts. On withdrawal of the needle, hemostasis was easily achieved. Blood loss was minimal and recovery from sedation was satisfactory. He appeared to have tolerated the procedure well without any obvious complications. JOSHUA
[2016-04-26] MEDS: HYDROcodone/APAP 5-325MG 1 EACH TAB PO PRN ×3 (11:01→20:52)
[2016-04-26 11:43] LABS: Free Kappa Lt Chain Qnt, Serum 1.03 mg/dL (0.33 - 1.94); Kappa/Lambda Light Chain Ratio 0.78 (0.26 - 1.65)
--- NOTE | 2016-04-26 13:06 | P.PN ---
Subjective Principal diagnosis: Chest pain This is a 46-year-old gentleman who presented to the hospital with symptoms of chest pain. Cardiac enzymes and troponins were negative 3. Patient was found to be significantly anemic on admission here with a hemoglobin of 6.2. Patient also had a low white blood cell count and platelet count suggestive pancytopenia. He was seen in consultation by Dr. Hamlin, it is felt that his chest pain was likely secondary to anemia. Echocardiogram with Doppler study was performed which revealed a normal left ventricular systolic function. Blood pressure 105/60, heart rate in the 60s. White blood cell count today 1.2, hemoglobin 7.2, platelet count 52. Patient underwent bone marrow aspiration today, he was seen and examined, denies any chest discomfort. Objective - Vital Signs Vital signs: Vital Signs Temp 97.4 F L 04/26/16 08:30 Pulse 107 H 04/26/16 08:30 Resp 18 04/26/16 08:30 BP 105/64 04/26/16 08:30 Pulse Ox 98 04/26/16 08:30 Intake & Output 04/25/16 04/26/16 04/26/16 18:59 06:59 18:59 Intake Total 460 200 Output Total 200 Balance 260 200 Weight 124.7 kg Intake: IV 160 200 Sodium Chloride 0.9% 1, 160 000 ml @ 20 mls/hr IV . Q24H [facility] Rx#:[id number] Oral 300 Output: Urine 200 Other: Voiding Method Toilet Urinal # Voids 1 1 - Exam PHYSICAL EXAMINATION: HEENT: Head is atraumatic, normocephalic. Pupils equal, round. Neck is supple. There is no elevated jugular venous pressure. HEART EXAMINATION: Heart S1, S2 normal. No murmur or gallop heard. CHEST EXAMINATION: Lungs are clear to auscultation and precussion. No chest wall tenderness is noted on palpation or with deep breathing. ABDOMEN: Soft, nontender. Bowel sounds are heard. No organomegaly noted. EXTREMITIES: 2+ peripheral pulses with no evidence of peripheral edema and no calf tenderness noted. NEUROLOGIC patient is awake, alert and oriented -3. . - Labs CBC & Chem 7: 04/26/16 06:49 04/26/16 06:46 Labs: Abnormal Lab Results - Last 24 Hours (Table) 04/24/16 04/24/16 04/26/16 Range/Units 17:58 17:58 06:46 WBC (3.8-10.6) k/uL RBC (4.30-5.90) m/uL Hgb (13.0-17.5) gm/dL Hct (39.0-53.0) % RDW (11.5-15.5) % Plt Count (150-450) k/uL Neutrophils # (Manual) (1.3-7.7) k/uL Lymphocytes # (Manual) (1.0-4.8) k/uL Nucleated RBCs (0-0) /100 WBC BUN 24 H (9-20) mg/dL Total Bilirubin 1.4 H (0.2-1.3) mg/dL AST 60 H (17-59) U/L Total Protein 5.3 L (6.3-8.2) g/dL Total Protein (PEP) 5.5 L (6.2-8.2) g/dL Albumin 3.1 L (3.5-5.0) g/dL Veupo-3-Rtzbvjhdw 0.45 L (0.60-1.00) g/dL Beta Globulins 0.47 L (0.60-1.30) g/dL Gamma Globulins 0.47 L (0.70-1.50) g/dL RBC Folate 968 H (280 - 791) ng/mL 04/26/16 Range/Units 06:49 WBC 1.2 L* (3.8-10.6) k/uL RBC 2.44 L (4.30-5.90) m/uL Hgb 7.2 L (13.0-17.5) gm/dL Hct 22.3 L (39.0-53.0) % RDW 18.8 H (11.5-15.5) % Plt Count 52 L (150-450) k/uL Neutrophils # (Manual) 0.5 L (1.3-7.7) k/uL Lymphocytes # (Manual) 0.4 L (1.0-4.8) k/uL Nucleated RBCs 1 H (0-0) /100 WBC BUN (9-20) mg/dL Total Bilirubin (0.2-1.3) mg/dL AST (17-59) U/L Total Protein (6.3-8.2) g/dL Total Protein (PEP) (6.2-8.2) g/dL Albumin (3.5-5.0) g/dL Ayyuo-9-Rumheofmb (0.60-1.00) g/dL Beta Globulins (0.60-1.30) g/dL Gamma Globulins (0.70-1.50) g/dL RBC Folate (280 - 791) ng/mL Assessment and Plan (1) Chest pain, atypical Status: Acute (2) Pancytopenia Status: Acute (3) Symptomatic anemia Status: Acute Plan: From cardiology's perspective, we will follow this patient with you now on an as -needed basis only, please don't hesitate to call with any questions. We will make the patient a follow-up appointment with Dr. Hamlin in the office in 4-6 weeks. Once the issues of the pancytopenia are resolved, patient will require an outpatient stress test down the road. DNP note has been reviewed, I agree with a documented findings and plan of care. Patient was seen and examined.
[2016-04-26 15:54] LABS: WBC 1.2 k/uL (3.8-10.6)
--- NOTE | 2016-04-26 19:58 | P.PN ---
Subjective This is a 46-year-old gentleman that is admitted to the hospital with progressive worsening of fatigue and some atypical chest pressure prior to admission. Patient apparently had a thyroid nodule that he is undergone biopsy for at which time he complained of some chest pressure which patient was sent to the ER for ongoing care. Patient underwent a CT angiogram of the chest to rule out a pulmonary embolism which was negative. Patient thereafter had serial cardiac enzymes which were also negative. Incidentally patient was noted to have pancytopenia including a hemoglobin level around 6 g per DL. Patient was given blood with the diagnosis symptomatic anemia. Patient apparently has had severe progressive worsening of dyspnea. However prior to blood and fusion patient was not tested for any deficiencies. Patient denies having any family history of cancers. No recent travel history is reported. 04/25/2016 Patient was asymptomatic. Had multiple questions about his condition. The bone marrow biopsy was deferred until tomorrow. Denies having any fevers, chills, nausea, vomiting, urinary urgency or frequency , diarrhea. 04/26/2016 Patient states to be slightly symptomatic with some dizziness on sitting up. Denies having any chest pressure, nausea, vomiting. Patient successfully underwent a bone marrow biopsy. States have some tenderness in the area of the biopsy. Objective - Vital Signs Vital signs: Vital Signs Temp 98.7 F 04/26/16 19:06 Pulse 96 04/26/16 19:06 Resp 20 04/26/16 19:06 BP 130/83 04/26/16 19:06 Pulse Ox 95 04/26/16 19:06 Intake & Output 04/26/16 04/26/16 04/27/16 06:59 18:59 06:59 Intake Total 450 Balance 450 Weight 124.7 kg Intake: IV 200 Oral 250 Other: Voiding Method Urinal Urinal # Voids 1 1 - Exam Physical exam Gen. appearance oriented 3 in no distress Neck is supple no JVD Lungs good air entry clear to auscultation no rhonchi or wheezing Heart S1-S2 heard regular rate and rhythm no murmurs appreciated Abdomen is soft nontender no organomegaly bowel sounds are intact Neurologically cranial nerves II-12 grossly intact no focal motor or sensory deficits noted Skin no abnormalities appreciated - Labs CBC & Chem 7: 04/26/16 06:49 04/26/16 06:46 Labs: Abnormal Lab Results - Last 24 Hours (Table) 0204/24/16 04/25/16 Range/Units 17:58 17:58 06:26 WBC 1.2 L* (3.8-10.6) k/uL RBC 2.54 L (4.30-5.90) m/uL Hgb 7.3 L (13.0-17.5) gm/dL Hct 23.3 L (39.0-53.0) % RDW 19.2 H (11.5-15.5) % Plt Count 57 L (150-450) k/uL Neutrophils # 0.6 L (1.3-7.7) k/uL Neutrophils # (Manual) (1.3-7.7) k/uL Lymphocytes # 0.4 L (1.0-4.8) k/uL Lymphocytes # (Manual) (1.0-4.8) k/uL Nucleated RBCs (0-0) /100 WBC BUN (9-20) mg/dL Total Bilirubin (0.2-1.3) mg/dL AST (17-59) U/L Total Protein (6.3-8.2) g/dL Total Protein (PEP) 5.5 L (6.2-8.2) g/dL Albumin (3.5-5.0) g/dL Eafxk-8-Nkdjwrajd 0.45 L (0.60-1.00) g/dL Beta Globulins 0.47 L (0.60-1.30) g/dL Gamma Globulins 0.47 L (0.70-1.50) g/dL RBC Folate 968 H (280 - 791) ng/mL 04/26/16 04/26/16 Range/Units 06:46 06:49 WBC 1.2 L* (3.8-10.6) k/uL RBC 2.44 L (4.30-5.90) m/uL Hgb 7.2 L (13.0-17.5) gm/dL Hct 22.3 L (39.0-53.0) % RDW 18.8 H (11.5-15.5) % Plt Count 52 L (150-450) k/uL Neutrophils # (1.3-7.7) k/uL Neutrophils # (Manual) 0.5 L (1.3-7.7) k/uL Lymphocytes # (1.0-4.8) k/uL Lymphocytes # (Manual) 0.4 L (1.0-4.8) k/uL Nucleated RBCs 1 H (0-0) /100 WBC BUN 24 H (9-20) mg/dL Total Bilirubin 1.4 H (0.2-1.3) mg/dL AST 60 H (17-59) U/L Total Protein 5.3 L (6.3-8.2) g/dL Total Protein (PEP) (6.2-8.2) g/dL Albumin 3.1 L (3.5-5.0) g/dL Zmlkb-7-Rdqipnllt (0.60-1.00) g/dL Beta Globulins (0.60-1.30) g/dL Gamma Globulins (0.70-1.50) g/dL RBC Folate (280 - 791) ng/mL Assessment and Plan Plan: #1 symptomatic anemia #2 pancytopenia suspicion of bone marrow failure #3 atypical chest pain #4 thyroid nodule Plan status post bone marrow biopsy. Await results. Patient will be given one more unit of PRBC irradiated. Patient appears to be slightly asymptomatic today. The hemoglobin the morning we'll likely discharge the patient tomorrow.
[2016-04-26] MEDS: SODIUM CHLORIDE 0.9% 1,000 ML IV SCH (20:00)
[2016-04-27 00:11] LABS: Anisocytosis Slight; CHCM 32.1; HCT 22.9 % (39.0-53.0); HDW 4.41; HGB 7.2 gm/dL (13.0-17.5); Hypochromasia Moderate; MCH 28.5 pg (25.0-35.0); MCHC 31.3 g/dL (31.0-37.0); MCV 90.9 fL (80.0-100.0); Mean Platelet Volume 8.7; Poikilocytosis Moderate; RBC 2.51 m/uL (4.30-5.90); RDW 19.1 % (11.5-15.5); WBC (Perox) 1.37
[2016-04-27 00:20] LABS: WBC 1.5 k/uL (3.8-10.6)
[2016-04-27 00:48] LABS: Add Differential Manual Differential
[2016-04-27 00:54] LABS: Manual Review Performed; Nucleated Red Blood Cells 0 /100 WBC (0-0); Ovalocytes Present; Polychromasia Present; Total Cells Counted 100; Toxic Granulation Present
[2016-04-27 09:42] LABS: Anisocytosis Slight; CH 28.7; CHCM 31.4; HCT 21.7 % (39.0-53.0); HDW 4.34; Hypochromasia Marked; Immature Gran Flag Marked; MCH 28.9 pg (25.0-35.0); MCHC 31.3 g/dL (31.0-37.0); MCV 92.1 fL (80.0-100.0); Mean Platelet Volume 8.4; Poikilocytosis Moderate; RBC 2.36 m/uL (4.30-5.90); RDW 18.7 % (11.5-15.5); WBC (Perox) 1.78
[2016-04-27 09:43] LABS: WBC 1.1 k/uL (3.8-10.6)
[2016-04-27 09:45] LABS: HGB 6.8 gm/dL (13.0-17.5)
[2016-04-27 12:14] LABS: Add Differential Manual Differential
[2016-04-27 12:21] LABS: Nucleated Red Blood Cells 1 /100 WBC (0-0); Total Cells Counted 100
[2016-04-27 12:25] LABS: Ovalocytes Present; Polychromasia Present
[2016-04-27] MEDS: ALBUTEROL NEBULIZED 2.5 MG/3 ML INHALATION PRN (14:14)
[2016-04-27 14:41] LABS: Bone Marrow Cell Count Performed
[2016-04-27] MEDS: HYDROcodone/APAP 5-325MG 1 EACH TAB PO PRN (16:36)
--- NOTE | 2016-04-27 19:38 | P.PN ---
Subjective This is a 46-year-old gentleman that is admitted to the hospital with progressive worsening of fatigue and some atypical chest pressure prior to admission. Patient apparently had a thyroid nodule that he is undergone biopsy for at which time he complained of some chest pressure which patient was sent to the ER for ongoing care. Patient underwent a CT angiogram of the chest to rule out a pulmonary embolism which was negative. Patient thereafter had serial cardiac enzymes which were also negative. Incidentally patient was noted to have pancytopenia including a hemoglobin level around 6 g per DL. Patient was given blood with the diagnosis symptomatic anemia. Patient apparently has had severe progressive worsening of dyspnea. However prior to blood and fusion patient was not tested for any deficiencies. Patient denies having any family history of cancers. No recent travel history is reported. 04/25/2016 Patient was asymptomatic. Had multiple questions about his condition. The bone marrow biopsy was deferred until tomorrow. Denies having any fevers, chills, nausea, vomiting, urinary urgency or frequency , diarrhea. 04/26/2016 Patient states to be slightly symptomatic with some dizziness on sitting up. Denies having any chest pressure, nausea, vomiting. Patient successfully underwent a bone marrow biopsy. States have some tenderness in the area of the biopsy. 04/27/16 Pt apparently had a febrile transfusion reaction overnight States to be fatigued at this time. Objective - Vital Signs Vital signs: Vital Signs Temp 99.0 F 04/27/16 12:00 Pulse 94 04/27/16 16:00 Resp 20 04/27/16 16:00 BP 136/79 04/27/16 12:00 Pulse Ox 98 04/27/16 12:00 Intake & Output 04/27/16 04/27/16 04/28/16 06:59 18:59 06:59 Intake Total 830 400 Balance 830 400 Weight 125 kg Intake: IV 220 Sodium Chloride 0.9% 1, 220 000 ml @ 20 mls/hr IV . Q24H [facility] Rx#:[id number] Oral 600 400 Blood Product 10 Rc Irr As1 Unit 10 [id number] Other: Voiding Method Toilet Toilet # Voids 2 - Exam Physical exam Gen. appearance oriented 3 in no distress Neck is supple no JVD Lungs good air entry clear to auscultation no rhonchi or wheezing Heart S1-S2 heard regular rate and rhythm no murmurs appreciated Abdomen is soft nontender no organomegaly bowel sounds are intact Neurologically cranial nerves II-12 grossly intact no focal motor or sensory deficits noted Skin no abnormalities appreciated - Labs CBC & Chem 7: 04/27/16 08:40 04/26/16 06:46 Labs: Abnormal Lab Results - Last 24 Hours (Table) 04/26/16 04/26/16 04/27/16 Range/Units 16:45 23:55 08:40 WBC 1.5 L* 1.1 L* (3.8-10.6) k/uL RBC 2.51 L 2.36 L (4.30-5.90) m/uL Hgb 7.2 L 6.8 L* (13.0-17.5) gm/dL Hct 22.9 L 21.7 L (39.0-53.0) % RDW 19.1 H 18.7 H (11.5-15.5) % Plt Count 63 L 56 L (150-450) k/uL Neutrophils # (Manual) 0.7 L 0.4 L (1.3-7.7) k/uL Lymphocytes # (Manual) 0.6 L 0.5 L (1.0-4.8) k/uL Nucleated RBCs 1 H (0-0) /100 WBC Crossmatch See Detail Assessment and Plan Plan: #1 symptomatic anemia #2 pancytopenia suspicion of bone marrow failure #3 atypical chest pain #4 thyroid nodule 5. febrile transfusion reaction Plan Prbc transfusion today, irradiated blood. Repeat HB min. dc planning accordingly.
[2016-04-27] MEDS: SODIUM CHLORIDE 0.9% 1,000 ML IV SCH (19:40)
[2016-04-27 23:18] VITALS: RESP 18
[2016-04-28 02:32] VITALS: TEMP 97.9
[2016-04-28 07:38] VITALS: BP 137/88
[2016-04-28 07:48] LABS: Anisocytosis Slight; Aty Lym Flag Moderate; CH 28.7; CHCM 31.5; HCT 24.9 % (39.0-53.0); HDW 4.34; HGB 7.8 gm/dL (13.0-17.5); Hypochromasia Marked; MCH 28.7 pg (25.0-35.0); MCHC 31.3 g/dL (31.0-37.0); MCV 91.8 fL (80.0-100.0); Mean Platelet Volume 8.2; Poikilocytosis Moderate; RBC 2.72 m/uL (4.30-5.90); RDW 18.7 % (11.5-15.5); WBC (Perox) 1.21
[2016-04-28 07:57] LABS: WBC 1.2 k/uL (3.8-10.6)
[2016-04-28 08:20] LABS: Add Differential Manual Differential
[2016-04-28 08:26] LABS: Manual Review Performed; Nucleated Red Blood Cells 3 /100 WBC (0-0); Polychromasia Present; Total Cells Counted 100
[2016-04-28] MEDS: ALBUTEROL NEBULIZED 2.5 MG/3 ML INHALATION PRN (08:54)
[2016-04-28 09:05] VITALS: PULSE 96
--- NOTE | 2016-04-28 18:35 | P.DS ---
Providers Date of admission: 04/23/16 15:34 Attending physician: Sean Leslie Primary care physician: Torey Jean Welia Health Course: This is a 46-year-old gentleman that is admitted to the hospital with progressive worsening of fatigue and some atypical chest pressure prior to admission. Patient apparently had a thyroid nodule that he is undergone biopsy for at which time he complained of some chest pressure which patient was sent to the ER for ongoing care. Patient underwent a CT angiogram of the chest to rule out a pulmonary embolism which was negative. Patient thereafter had serial cardiac enzymes which were also negative. Incidentally patient was noted to have pancytopenia including a hemoglobin level around 6 g per DL. Patient was given blood with the diagnosis symptomatic anemia. Patient apparently has had severe progressive worsening of dyspnea. However prior to blood and fusion patient was not tested for any deficiencies. Patient denies having any family history of cancers. No recent travel history is reported. 04/25/2016 Patient was asymptomatic. Had multiple questions about his condition. The bone marrow biopsy was deferred until tomorrow. Denies having any fevers, chills, nausea, vomiting, urinary urgency or frequency , diarrhea. 04/26/2016 Patient states to be slightly symptomatic with some dizziness on sitting up. Denies having any chest pressure, nausea, vomiting. Patient successfully underwent a bone marrow biopsy. States have some tenderness in the area of the biopsy. 04/27/16 Pt apparently had a febrile transfusion reaction overnight States to be fatigued at this time. - Exam Physical exam Gen. appearance oriented 3 in no distress Neck is supple no JVD Lungs good air entry clear to auscultation no rhonchi or wheezing Heart S1-S2 heard regular rate and rhythm no murmurs appreciated Abdomen is soft nontender no organomegaly bowel sounds are intact Neurologically cranial nerves II-12 grossly intact no focal motor or sensory deficits noted Skin no abnormalities appreciated Assessment and Plan Plan: #1 symptomatic anemia #2 pancytopenia suspicion of bone marrow failure #3 atypical chest pain #4 thyroid nodule 5. febrile transfusion reaction Patient underwent PRBC transfusion the night before discharge. Patient's hemoglobin was given 7. Patient was asymptomatic on discharge. Recommended the patient to call Dr. Chairez's office on Saturday morning and to obtain a visit with him in order to discuss the results of bone marrow. If patient continues to have chest pain or difficulty breathing or dizziness patient is recommended to come back to the hospital for repeat hemoglobin and thereafter transfusion if necessary. Patient is also recommended not to take his erection dysfunction medications at this time, Plan - Discharge Summary Discharge Medication List Albuterol Inhaler [Ventolin Hfa Inhaler] 1 - 2 puff INHALATION RT-Q6H PRN [History] Famotidine 40 mg PO DAILY 04/23/16 [History] Ibuprofen [Motrin] 800 mg PO Q8H PRN 04/23/16 [History] Follow up Appointment(s)/Referral(s): Daniele Chairez MD [STAFF PHYSICIAN] - 1 Week Torey Lindsey MD [Primary Care Provider] - 1-2 days Rafy Hamlin MD [STAFF PHYSICIAN] - 6 Weeks Patient Instructions/Handouts: Anemia (DC) Activity/Diet/Wound Care/Special Instructions: activity as tolerated regular diet Discharge Disposition: HOME SELF-CARE
== END 2016-04-28 14:33 | disposition home or self-care (01) | DRG 810 ==
LOC: EC 12:51 → 6SEL 15:34 → 4MS4W 04-26 18:34
PROVIDERS: ADMIT Internal Medicine; ATTEND Internal Medicine
PROC: 30233N1 Transfusion of Nonautologous Red Blood Cells into Peripheral Vein, Percutaneous Approach (ICD-10-PCS; principal; 2016-04-25)
PROC: 07DR3ZX Extraction of Iliac Bone Marrow, Percutaneous Approach, Diagnostic (ICD-10-PCS; 2016-04-26 07:30)
DX: D61.818 Other pancytopenia (principal); E04.1 Nontoxic single thyroid nodule; K21.9 Gastro-esophageal reflux disease without esophagitis; Y84.8 Other medical procedures as the cause of abnormal reaction of the patient, or of later complication, without mention of misadventure at the time of the procedure; Z82.49 Family history of ischemic heart disease and other diseases of the circulatory system; R50.84 Febrile nonhemolytic transfusion reaction
CPT/HCPCS: 36415; 38221; 71020; 71275; 80053; 82150; 82550; 82553; 82607; 82728; 82747; 83010; 83540; 83550; 83615; 83690; 83735; 83880; 83883; 84165; 84484; 85025; 85045; 85379; 85610; 85730; 86038; 86334; 86431; 86850; 86880; 86900; 86901; 86920; 93005; 93306; 94640; 99153; 99291

== ENCOUNTER → 2016-05-05 | Outpatient (CLI) | payer BC ==
--- NOTE | 2016-05-07 13:06 | PE ---
Nuclear medicine PET/CT HISTORY: Non-Hodgkin's Phoma Patient received 15.5 mCi F-18 FDG intravenously and delayed scanning was performed from the skull ba se through the mid thighs. Localization and attenuation correction CT scan was performed. Exam correl ated chest CT April FINDINGS: Osseous structures: 2 numerous to count foci of hypermetabolic uptake are present throughout the bone s involving the proximal upper and lower extremities, pelvic girdle, cervical, thoracic, lumbar spine , scapula is, clavicles and ribs, SUV as high as 24. Abdomen pelvis: The spleen is markedly enlarged. There are focal areas of associated hypermetabolic u ptake, SUV 8-9. Focal hypermetabolic uptake within the liver shows SUV of 6, some smaller foci show S UV of approximately 4 within the liver, no definite corresponding masses. External iliac adenopathy o n the right shows associated SUV of approximately 5-6, the mass measures approximately 4.6 x 3.5 cm, towards the right groin additional mass measuring 3.9 x 4.4 and in the right inguinal region addition al mass measuring 6.5 x 3.6, SUV values 11.5 and 16.7 respectively node also present in the left groi n just lateral to the pubic symphysis measuring 3.2 cm, SUV 18-23. Adjacent to the right inferior pub ic ramus additional mass, SUV 24 Neck and chest: Pulmonary artery is prominent, correlate for possible pulmonary artery hypertension. Retrocaval pretracheal node is again seen, there is associated hypermetabolic uptake. SUV 5.2. IMPRESSION: Findings compatible with diffuse metastatic disease as described
== END | disposition home or self-care (01) ==
LOC: RADPETMAIN 12:52
PROVIDERS: ATTEND Internal Medicine Hematology & Oncology
DX: C85.90 Non-Hodgkin lymphoma, unspecified, unspecified site (principal)
CPT/HCPCS: 78815; A9552